=== PATIENT | female | born 1960 | race Caucasian/White ===

== ENCOUNTER 2023-02-10 14:48 | Outpatient (CLI) | payer BC, SELFPAY ==
--- NOTE | 2023-02-10 15:00 | CRLHL7_ITS ---
For Patients: As a result of the Century Cures Act, medical imaging exams and procedure reports are released immediately into your electronic medical record. You may view this report before your referring provider. If you have questions, please contact your health care provider. BILATERAL SCREENING MAMMOGRAM WITH COMPUTER-AIDED DETECTION TECHNIQUE: CC and MLO views were obtained. These mammographic images have been obtained using full-field digital technique. These mammographic images were interpreted with the benefit of computer-aided detection. COMPARISON FILM: 11/04/21, 10/01/20, 07/19/19. FINDINGS: There are scattered areas of fibroglandular density IMPRESSION: There is no radiographic evidence for malignancy. ASSESSMENT: BI-RADS Category 2: Benign RECOMMENDATION: Routine screening mammogram in 1 year. A lay language report of this examination will be provided to the patient. Goldy Torrez M.D. Diagnostic Radiologist [email or web address] Transcribed: 5:22 [email or web address] [email or web address]/Dictated by: Goldy Torrez MD @ 02/11/2023 9:42:00 AM (Electronically Signed)
== END 2023-02-10 14:49 | disposition home or self-care (01) ==
LOC: MAMMO 14:49
PROVIDERS: PCP Family Medicine; Visit Provider Family Medicine
DX: Z12.31 Encounter for screening mammogram for malignant neoplasm of breast (principal)
CPT/HCPCS: 77067

== ENCOUNTER 2023-03-18 09:15 | Outpatient (CLI) | payer BC, SELFPAY | END 2023-03-18 09:16 | disposition home or self-care (01) | LOC: NFLDREF 23:59 | PROVIDERS: PCP Family Medicine; Referring Provider Family Medicine; Visit Provider Family Medicine | DX: Z01.419 Encounter for gynecological examination (general) (routine) without abnormal findings (principal); M85.80 Other specified disorders of bone density and structure, unspecified site; E78.5 Hyperlipidemia, unspecified; Z13.1 Encounter for screening for diabetes mellitus | CPT/HCPCS: 80061; 82306; 82947 ==

== ENCOUNTER 2023-06-08 10:37 | Outpatient (CLI) | payer BC, SELFPAY ==
--- NOTE | 2023-06-08 11:10 | W.ANESCHARGE ---
Anesthesia Charges Start Date/Time Anesthesia Start Date: 06/08/23 Anesthesia Start Time: 11:48 Stop Date/Time Anesthesia Stop Date: 06/08/23 Anesthesia Stop Time: 12:25
--- NOTE | 2023-06-08 12:33 | W.ANESCHARGE ---
Anesthesia Charges Start Date/Time Anesthesia Start Date: 06/08/23 Anesthesia Start Time: 11:48 Stop Date/Time Anesthesia Stop Date: 06/08/23 Anesthesia Stop Time: 12:25
== END 2023-06-08 10:38 | disposition home or self-care (01) ==
LOC: OP CLINIC 10:38
PROVIDERS: PCP Family Medicine; Visit Provider Surgery
DX: Z12.11 Encounter for screening for malignant neoplasm of colon (principal); K63.5 Polyp of colon; K62.1 Rectal polyp
CPT/HCPCS: 00811; 45385; 88305; J2704; J3490

== ENCOUNTER 2024-06-13 09:10 | Outpatient (CLI) | payer OTHER, SELFPAY ==
--- OUTSIDE RECORDS SUMMARY | 2024-06-14 11:23 | XMS_ITS | Clinical Summary ---
Author Organization [facility] Address [place], [place] [address] Care Team Providers Care Inspector Ball Points Name Role Phone Vinh Kumari MD Primary Care Provider [phone] Allergies No known active allergies Medications Medication Sig Dispensed Refills Start Date End Date Status EXCEDRIN MIGRAINE 250 MG-250 MG-65 MG TAB as needed 01/07/2006 Active sennosides (SENNA LAX) 8.6 mg tablet Take 2 tablets by mouth 2 times daily. 0 06/09/2010 Active oxybutynin (DITROPAN) 5 mg tablet Take by mouth once daily. 01/26/2012 Active aspirin 81 mg tablet Take 1 tablet by mouth once daily with a meal. 0 02/22/2013 Active Calcium-Cholecalcif thomas, D3, (CALCIUM 600 WITH VITAMIN D3) 600 mg(1,500mg) -400 unit cap Take 1 capsule by mouth once daily. 0 02/22/2013 Active omega-3 fatty acids-vitamin E (FISH OIL) 1,000 mg cap Take 1 capsule by mouth once daily. 0 02/22/2013 Active magnesium 250 mg Tab Take 1 tablet by mouth once daily. 0 02/22/2013 Active medication order composer L-S Methyltetrahydrofol ate, Dietary Supplement 1 tablet daily 0 02/22/2013 Active rosuvastatin (CRESTOR) 20 mg tabletIndications:A rteriosclerotic heart disease Take 1 tablet by mouth at bedtime. Overdue for cardiology appointment, please call to schedule for further refills. 90 tablet 04/03/2019 Active Active Problems Problem Noted Date Diagnosed Date CAD (coronary artery disease) 02/24/2012 Smoking history 02/24/2012 Mixed hyperlipidemia 02/24/2012 GERD (gastroesophageal reflux disease) 2 Chest pain, unspecified Migraine, unspecified, witho ut mention of intractable migraine without mention of status migrainosus Family history of ischemic heart disease Family History Medical History Relation Name Comments Heart Disease Brother 1 of [place] at age 43 Heart Disease Brother 2 stent at age 4 3, high cholesterol Heart Disease Father 2 CABG surgeri es, HTN Heart Disease Mother 3 stents recen tly Heart Disease Paternal Grandfather a t age 52 of [place] Cancer Sister ovarian cncer Relation Name Status Comments Brother 1 Brother 2 Father Mother Paternal Grandfather Sister Social History Tobacco Use Types Packs/Day Years Used Date Smoking Tobacco: Former Cigarettes 1 33 1 - 05/28/2007 Alcohol Use Standard Drinks/Week Comments Yes 0 (1 standard drink = 0.6 oz pur e alcohol) social Sex and Gender Information Value Date Recorded Sex Assigned at Not on file Gender Identity Not on file Sexual Orientation Not on file Obstetrics History Last Filed Vital Signs Vital Sign Reading Time Taken Comments Blood Pressure 120/62 12/31/2017 3:05 PM CDT Pulse 63 12/31/2017 3:05 PM CDT Temperature - - Respiratory Rate 16 12/31/2017 3:05 PM CDT Oxygen Saturation 98% 02/22/2013 11:01 AM CDT Inhaled Oxygen Concentration - - Weight 59 kg (130 lb) 12/31/2017 3:05 PM CDT Height 162.6 cm (5' 4) 02/22/2013 11:01 AM CDT Body Mass Index 22.31 02/22/2013 11:01 AM CDT Plan of Treatment Upcoming Encounters Date Type Department Care Team (Late st Contact Info) Description 06/30/2024 8:00 AM TECHNICAL ACCOUNT REPRESENTATIVE Ancillary Procedure [facility] [address] [facility] [address] [place] [address] Health Maintenance Due Date Last Done Comments Tdap 1969 Depression screening for age 12+ 1970 HIV for age 15-65 1973 BMI (ht and wt on same day) for age 18+ 1976 Hepatitis C screening for ag e 18-79 1976 Tetanus booster 1978 Mammogram for age 45-75 10/16/2003 Zoster (shingles) series for age 50+ (1 of 2) 2008 Lipids for age 45-75 02/22/2018 02/22/2013 Colonoscopy through age 75 11/17/2022 11/17/2012 DEXA/DXA scan for age 65+ 10/16/2023 Pneumococcal series for age 65+ (1 of 1 - PCV) 10/16/2023 COVID-19 vaccine series (2023-25 season) 2024 Influenza for age 65+ 04/16/2024 Pap test for age 21-65 12/24/2024 2, 12/24/2021, 04/15/2016, Additional history exists Procedures Procedure Name Priority Date/Time Associated Diagnosis Comments PROCESS MOLD TECHNICIAN THIN PREP PAP SCREEN IMAGED Routine 12/24/2021 1:30 PM CDT LIPID PANEL Routine 02/22/2013 9:12 AM CDT CHEST PAIN MIGRAINE FAMILY HX OF ISCHEMIC HEART DISEASE CAD (coronary artery disease) Smoking history Mixed hyperlipidemia GERD (gastroesophageal reflux disease) from Last 3 Months or Most Recently Relevant to Health Maintenance Results * PROCESS MOLD TECHNICIAN THIN PREP PAP SCREEN IMAGED (12/24/2021 1:30 PM CDT) Case Report Gynecologic Cytology Report ? Case: [id number] ? Authorizing Provider: ??Darleen Link MD ??Collected: ? 12/24/2021 1330 ? Ordering Location: ? [facility] ?Received: ?12/26/2021 0854 ? First Screen: ?G[facility] ? Specimen: ?PROCESS MOLD TECHNICIAN ThinPrep Vial Screening, Cervical/Vaginal ? 01/08/2022 10:28 AM [facility] INTERPRETATION/ RESULT NEGATIVE FOR INTRAEPITHELIAL LESION OR MALIGNANCY (NIL) (none) 01/08/2022 10:28 AM [facility] IMEN ADEQUACY Satisfactory for evaluation Endocervical component present 01/08/2022 10:28 AM [facility] HPV REQUEST HPV if ASCUS 01/08/2022 10:28 AM [facility] Date of LMP 01/08/2022 10:28 AM [facility] Comment:N/A Last Pap Date 04/15/2016 01/08/2022 10:28 AM [facility] Last Pap Result 10:28 AM [facility] Comment:Normal Additional Information 01/08/2022 10:28 AM [facility] Comment: Interpreted at [facility], Central Laboratory - [address] [place] [address] Automated Review Successful 01/08/2022 10:28 AM [facility] Comment:Specimen processed s uccessfully by automated mass spectroscopist device, ThinPrep Imaging System, [employer] Note The pap test is a screening technique, not a diagnostic procedure. It is used primarily to screen for squamous cancers and precursor lesions. Published studies have shown that it is subject to both false negative and false positive results. The pap test should not be used as the sole means to diagnose or exclude pre-malignant and malignant lesions. 01/08/2022 10:28 AM CDT [facility] Other (Cervical/Vagina l) 12/24/2021 1:30 PM CDT 12/26/2021 8:54 AM CDT Darleen Link MD PATHOLOGY/CYTOLO GY [facility] [address] [place] [address], * (ABNORMAL) LIPID PANEL (02/22/2013 9:12 AM CDT) CHOLESTEROL,TOTA L 216(H) 100 - 199 mg/dL [facility] TRIGLYCERIDES 107 <150 mg/dL [facility] HDL CHOLESTEROL 77 >40 mg/dL [facility] CHOL/HDL RATIO 2.81 <4.50 [facility] NON-HDL CHOLESTEROL 139 Undefined mg/dL [facility] LDL CHOLESTEROL 118 <131 mg/dL [facility] PATIENT STATUS Fasting [facility] Blood specimen (specimen) BLOOD SPECIMEN / Unknown 02/22/2013 9:12 AM CDT 02/22/2013 9:14 AM CDT Dominic Chong MD CHEMISTRY [facility] INTERNAL ZIP [id number] [place] [address] from Last 3 Months or Most Recently Relevant to Health Maintenance Care Teams Inspector Ball Points Relationship Specialty Start Date End Date Vinh Kumari MD [address] [phone] PCP - General 12/11/05
== END 2024-06-13 09:11 | disposition home or self-care (01) ==
LOC: NFLDREF 06-14 11:21
PROVIDERS: PCP Family Medicine; Referring Provider Family Medicine; Visit Provider Family Medicine
DX: M85.89 Other specified disorders of bone density and structure, multiple sites (principal); E78.5 Hyperlipidemia, unspecified; R53.83 Other fatigue
CPT/HCPCS: 80053; 80061; 82306

== ENCOUNTER 2024-07-06 14:53 | Outpatient (CLI) | payer OTHER, SELFPAY ==
--- OUTSIDE RECORDS SUMMARY | 2024-07-06 14:55 | XMS_ITS | Clinical Summary ---
Author Organization [facility] Address [place], [place] [address] Care Team Providers Care Horse Race Timer Name Role Phone Vinh Kumari MD Primary Care Provider [phone] Allergies No known active allergies Medications Medication [...] once daily. 0 02/22/2013 Active medication order composslade L-S Methyltetrahydrofol ate, Dietary Supplement 1 tablet [...] migrainosus Family history of ischemic heart disease Encounters Date Type Department Care Team Description 06/30/2024 8:00 AM SWITCHBOARD MANAGER Ancillary Procedure [facility] [address] [facility] [place] [address] 06/30/2024 Travel from Last 3 Months Family History Medical History Relation Name Comments Heart Disease Brother 1 of [place] at age 43 Heart Disease Brother 2 stent at age 4 3, high cholesterol Heart Disease Father 2 CABG surgeri es, HTN Heart Disease Mother 3 stents recen tly Heart Disease Paternal Grandfather a t age 52 of [place] Cancer Sister ovarian cncer Relation Name Status [...] 02/22/2013 11:01 AM CDT Plan of Treatment Health Maintenance Due Date Last Done Comments [...] 1 - PCV) 10/16/2023 COVID-19 vaccine series (2023- season) 2024 Influenza for age 65+ 04/16/2024 Pap test for age 21-65 12/24/2024 2, 12/24/2021, 04/15/2016, Additional history exists Procedures Procedure Name Priority Date/Time Associated Diagnosis Comments CT CARDIAC CALCIUM SCORE ONLY WO SINGLE READ Routine 06/30/2024 8:11 AM SWITCHBOARD MANAGER Screening for cardiovascular condition LINUX SERVER ADMINISTRATOR THIN PREP PAP SCREEN IMAGED Routine 12/24/2021 1:30 PM CDT LIPID PANEL Routine 02/22/2013 9:12 AM CDT CHEST PAIN MIGRAINE FAMILY HX OF ISCHEMIC HEART DISEASE CAD (coronary artery disease) Smoking history Mixed hyperlipidemia GERD (gastroesophageal reflux disease) from Last 3 Months or Most Recently Relevant to Health Maintenance Results * CT CARDIAC CALCIUM SCORE ONLY WO SINGLE READ (06/30/2024 8:11 AM SWITCHBOARD MANAGER) Anatomical Region Laterality Modality Computed Tomogra phy Impressions 06/30/2024 1:42 PM SWITCHBOARD MANAGER 18-mm nodule in the left breast on image 3. Suggest diagnostic breast imaging evaluation. No additional acute or suspicious extracardiac imaging abnormalities. Please note that all CT scans at this facility use dose modulation, iterative reconstruction and/or weight-based dosing when appropriate to reduce radiation dose to as low as reasonably achievable. Connor Salmon M.D. Pediatric/Diagnostic Radiologist Cardiothoracic Imaging [email or web address] Narrative 06/30/2024 1:42 PM SWITCHBOARD MANAGER For Patients: As a result of the Cures Act, medical imaging exams and procedure reports are released immediately into your electronic medical record. You may view this report before your referring provider. If you have questions, please contact your health care provider. CT CARDIAC CALCIUM SCORING, 06/30/2024 PATIENT HISTORY: Screening for cardiovascular condition. REPORT: High-resolution, ECG-synchronized noncontrast computed tomography of the heart with attention to the coronary arteries was performed. Coronary calcification analyzed using Siemens calcium scoring software. These are the results of the evaluation. CT Calcium Scoring: This cardiac CT examination will provide you with a coronary artery calcium score. A coronary artery calcium score is a measurement of the amount of calcified plaque in the coronary arteries, the arteries that supply blood to the heart muscle. The coronary artery calcium score is calculated based on the number, size, and density of the calcified plaques in the coronary arteries. The amount of calcified coronary plaque has been shown to directly correlate with future risk for heart disease. The coronary artery calcium is a marker of how much plaque has accumulated in the cifuentes of the coronary arteries. It is not a test for blockages. This test is intended to assess cardiovascular risk in patients without symptoms. It is not intended to be a test for individuals with chest pain or other possible symptoms suggestive of heart disease. If you are having chest pain or other potential cardiovascular symptoms, see your physician. Calcium Score: Left main = 0 Left anterior descending = 200 Left circumflex = 5 Right coronary artery = 401 Total calcium score = 606 This places the patient at the 97th percentile for matched age and gender. Calcified Plaque Seen Assessment: Your cardiac CT examination demonstrates plaque in the coronary arteries. The amount of plaque in the coronary arteries directly correlates with the risk for heart attack and other coronary events (such as bypass or stenting). As discussed above, the coronary artery calcium score is intended for risk assessment in patients without cardiovascular symptoms. If you are having chest pain or other potential cardiovascular symptoms, see your physician. Recommendations: To lower your cardiovascular risk, we strongly recommend adherence to healthy lifestyle behaviors including: Following a heart healthy diet focused on modest portion sizes, a high intake of fresh fruits and vegetables, whole grains, healthy fats (olive oil, nuts and seeds, avocados), and healthy proteins (unprocessed meats, fish, legumes). Following an active lifestyle including 30-45 minutes of moderate intensity exercise 5-6 times per week. Avoidance of tobacco products. Cardiovascular preventive medication, including a daily aspirin and cholesterol-lowering statin medications have been shown to reduce the risk of a future heart attack and stroke, especially in individuals at higher risk for heart disease. We recommend that individuals with calcified plaque discuss the risks and benefits of cholesterol-lowering medications, blood pressure medications, and aspirin with their primary care physician. Cholesterol-lowering medications have been shown to reduce the risk of heart attack in individuals at elevated risk, including in patients with n ormal cholesterol levels at baseline. A coronary artery calcium score is not a test for blockages, it is a test for underlying plaque. An elevated calcium score is not an indication for additional testing for coronary heart disease though one may be considered based on your clinical history. The results of your coronary artery calcium score should be reviewed by your primary care provider or guidance and control system engineer. These recommendations are generalized and may not specifically apply to you as an individual. Your primary care physician is in the best position to provide advice on your care and clinical decisions should ultimately be made by you and your physician. Referral Self CT * LINUX SERVER ADMINISTRATOR THIN PREP PAP SCREEN IMAGED (12/24/2021 1:30 PM CDT) Case Report Gynecologic Cytology Report Case: [id number] Authorizing Provider: Darleen Link MD Collected: 12/24/2021 1330 Ordering Location: [facility] Received: 12/26/2021 0854 First Screen: Gilda House Specimen: LINUX SERVER ADMINISTRATOR ThinPrep Vial Screening, Cervical/Vaginal 01/08/2022 10:28 AM CDT [facility] INTERPRETATION/ RESULT NEGATIVE FOR INTRAEPITHELIAL LESION OR MALIGNANCY (NIL) (none) 01/08/2022 10:28 AM CDT [facility] IMEN ADEQUACY Satisfactory for evaluation Endocervical component present 01/08/2022 10:28 AM CDT [facility] HPV REQUEST HPV if ASCUS 01/08/2022 10:28 AM CDT [facility] Date of LMP 01/08/2022 10:28 AM CDT [facility] Comment:N/A Last Pap Date 04/15/2016 01/08/2022 10:28 AM CDT [facility] Last Pap Result 10:28 AM CDT [facility] Comment:Normal Additional Information 01/08/2022 10:28 AM CDT [facility] Comment: Interpreted at [facility] - [address], [place] [address] Automated Review Successful 01/08/2022 10:28 AM CDT [facility] Comment:Specimen processed s uccessfully by automated medical practitioners device, ThinPrep Imaging System, [employer] Note The pap test is a screening technique, not a diagnostic procedure. It is used primarily to screen for squamous cancers and precursor lesions. Published studies have shown that it is subject to both false negative and false positive results. The pap test should not be used as the sole means to diagnose or exclude pre-malignant and malignant lesions. 01/08/2022 10:28 AM T [facility] Other (Cervical/Vagina l) 12/24/2021 1:30 PM CDT 12/26/2021 8:54 AM CDT Darleen Link MD PATHOLOGY/CYTOLO GY [facility] [address] [place] [address], [place] * (ABNORMAL) LIPID PANEL (02/22/2013 9:12 AM CDT) CHOLESTEROL,TOTA L 216(H) 100 - 199 mg/dL [facility] TRIGLYCERIDES 107 <150 mg/dL [facility] HDL CHOLESTEROL 77 >40 mg/dL [facility] CHOL/HDL RATIO 2.81 <4.50 [facility] NON-HDL CHOLESTEROL 139 Undefined mg/dL [facility] LDL CHOLESTEROL 118 <131 mg/dL [facility] PATIENT STATUS Fasting [facility] Blood specimen (specimen) BLOOD SPECIMEN / Unknown 02/22/2013 9:12 AM CDT 02/22/2013 9:14 AM CDT Dominic Chong MD CHEMISTRY [facility] [place]NAL ZIP [address] [address] [place] [id number] from Last 3 Months or Most Recently Relevant to Health Maintenance Care Teams Horse Race Timer Relationship Specialty Start Date End Date Vinh Kumari MD [address] [phone] PCP - General 12/11/05
--- NOTE | 2024-07-06 15:00 | CRLHL7_ITS ---
For Patients: As a result of the Century Cures Act, medical imaging exams and procedure reports are released immediately into your electronic medical record. You may view this report before your referring provider. If you have questions, please contact your health care provider. DXA BONE MINERAL DENSITY STUDY Reason for exam: Osteopenia. Current height (in): 64. Weight (lbs): 130. Menopause age: 48. Ethnicity: White. 1. Have you had a previous hip or vertebral fracture? No. 2. Have you had any fractures during your adult life which did not result from significant trauma (e.g., auto accident)? Yes. 3. Did either of your parents have a hip fracture? No. 4. Do you smoke? No. 5. Have you ever taken Glucocorticoids? No. 6. Do you have rheumatoid arthritis? No. 7. Do you have secondary osteoporosis? No. 8. Do you drink 3 or more alcoholic drinks per day? No. 9. Are you being treated for osteoporosis? No. 10. Have you ever taken any of the following medications: Actonel, Evista, Fosamax, Miacalcin, Reclast, Boniva, Forteo, HRT (i.e., estrogen/hormone therapy), Protelos, Prolia, Vitamin D, Calcium, other ??? please specify. ANSWER: Yes, vitamin D and calcium. 11. Do you have any of the following medical conditions: Anorexia or bulimia, asthma or emphysema, end stage renal disease, hyperparathyroidism, any seizure disorders, cancer, inflammatory bowel diseases, hysterectomy, other ??? please specify. ANSWER: No. 12. What was your maximum height (inches)? 64. 13. Do you perform weight bearing exercise regularly? No. 14. Do you regularly consume dairy products? Yes. 15. Do you drink caffeinated beverages? Yes. 16. At what age did your period start? 12. 17. Are you premenopausal? No. 18. How many full-term pregnancies have you had? 4. 19. Have you ever missed your period for more than 6 months in a row (not including or menopause)? No. TECHNIQUE: Bone mineral density study was performed using the [employer]. FINDINGS: The results of the study expressed as bone mineral density (BMD) are as follows: Lumbar spine L1 to L4: BMD: 0.789 g/cm2. T-score: -2.3. Z-score: -0.5 Neck Left: BMD: 0.571 g/cm2. T-score: -2.5. Z-score: -1.0 Right: BMD: 0.628 g/cm2. T-score: -2.0. Z-score: -0.4 Total Left: BMD: 0.737 g/cm2. T-score: -1.7. Z-score: -0.4 Right: BMD: 0.722 g/cm2. T-score: -1.8. Z-score: -0.5 IMPRESSION: Osteoporosis. *Comparison exams done prior to 01/2020 were performed on different unit, [employer]. COMPARISON: Compared with scan of 01/08/2022, the bone mineral density has increased by 0.3 percent at the spine and decreased by 2.1 percent at the hip. Compared with scan of 07/25/2018, the bone mineral density has decreased by 6.5 percent at the spine and increased by 1.4 percent at the hip. Goldy Torrez M.D. Diagnostic Radiologist [email or web address]/Dictated by: Goldy Torrez MD @ 07/07/2024 8:45:00 AM (Electronically Signed)
== END 2024-07-06 14:54 | disposition home or self-care (01) ==
LOC: RAD 14:54
PROVIDERS: PCP Family Medicine; Visit Provider Family Medicine
DX: M85.89 Other specified disorders of bone density and structure, multiple sites (principal); M81.0 Age-related osteoporosis without current pathological fracture
CPT/HCPCS: 77080

== ENCOUNTER 2024-07-11 06:24 | Outpatient (CLI) | payer OTHER, SELFPAY ==
--- OUTSIDE RECORDS SUMMARY | 2024-07-11 06:26 | XMS_ITS | Clinical Summary ---
Author Organization [employer] [facility] Address [place], [place] [address] Care Team Providers Care Visual Educator Name Role Phone Vinh Kumari MD Primary Care Provider [phone] Allergies No known active allergies Medications Medication [...] Department Care Team Description 06/30/2024 8:00 AM CISCO UNIFIED COMMUNICATIONS ENGINEER Ancillary Procedure [facility] [address] [facility] [address] [place] [address] 06/30/2024 Travel from Last 3 Months Family History Medical History Relation Name Comments Heart Disease Brother 1 of [place] at age 43 Heart Disease Brother 2 stent at age 4 3, high cholesterol Heart Disease Father 2 CABG surgeri es, HTN Heart Disease Mother 3 stents recen tly Heart Disease Paternal Grandfather a t age 52 of [place] Cancer Sister ovarian cncer Relation Name Status [...] WO SINGLE READ Routine 06/30/2024 8:11 AM CISCO UNIFIED COMMUNICATIONS ENGINEER Screening for cardiovascular condition SIDEHAND THIN PREP PAP SCREEN IMAGED Routine 12/24/2021 1:30 PM CDT LIPID PANEL Routine 02/22/2013 9:12 AM CDT CHEST PAIN MIGRAINE FAMILY HX OF ISCHEMIC HEART DISEASE CAD (coronary artery disease) Smoking history Mixed hyperlipidemia GERD (gastroesophageal reflux disease) from Last 3 Months or Most Recently Relevant to Health Maintenance Results * CT CARDIAC CALCIUM SCORE ONLY WO SINGLE READ (06/30/2024 8:11 AM CISCO UNIFIED COMMUNICATIONS ENGINEER) Anatomical Region Laterality Modality Computed Tomogra phy Impressions 06/30/2024 1:42 PM CISCO UNIFIED COMMUNICATIONS ENGINEER 18-mm nodule in the left breast on [...] Ltd. [email or web address] SHH/rcd Narrative 06/30/2024 1:42 PM CISCO UNIFIED COMMUNICATIONS ENGINEER For Patients: As a result of the [...] reviewed by your primary care provider or news broadcaster. These recommendations are generalized and may not specifically apply to you as an individual. Your primary care physician is in the best position to provide advice on your care and clinical decisions should ultimately be made by you and your physician. Referral Self CT * SIDEHAND THIN PREP PAP SCREEN IMAGED (12/24/2021 1:30 PM CDT) Case Report Gynecologic Cytology Report Case: [id number] Authorizing Provider: Darleen Link MD Collected: 12/24/2021 1330 Ordering Location: [facility] Received: 12/26/2021 0854 First Screen: Gilda House Specimen: SIDEHAND ThinPrep Vial Screening, Cervical/Vaginal 01/08/2022 10:28 AM CDT [facility]-C ENTRAL LABORATORY INTERPRETATION/ RESULT NEGATIVE FOR INTRAEPITHELIAL LESION OR MALIGNANCY (NIL) (none) 01/08/2022 10:28 AM CDT [facility] LABORATORY IMEN ADEQUACY Satisfactory for evaluation Endocervical component present 01/08/2022 10:28 AM CDT [facility] HPV REQUEST HPV if ASCUS 01/08/2022 10:28 AM CDT [facility] Date of LMP 01/08/2022 10:28 AM CDT [facility] Comment:N/A Last Pap Date 04/15/2016 01/08/2022 10:28 AM CDT [facility] Last Pap Result 10:28 AM CDT [facility] Comment:Normal Additional Information 01/08/2022 10:28 AM CDT [facility] Comment: Interpreted at [facility] - [address], [place] [address] Automated Review Successful 01/08/2022 10:28 AM CDT [facility] Comment:Specimen processed s uccessfully by automated police officer booking device, ThinPrep Imaging System, [employer] Note The pap test is a [...] and malignant lesions. 01/08/2022 10:28 AM T [facility] Other (Cervical/Vagina l) 12/24/2021 1:30 PM CDT 12/26/2021 8:54 AM CDT Darleen Link MD PATHOLOGY/CYTOLO GY [facility] [address] [place] [address], [place] * (ABNORMAL) LIPID PANEL (02/22/2013 9:12 AM CDT) CHOLESTEROL,TOTA L 216(H) 100 - 199 mg/dL [facility] TRIGLYCERIDES 107 <150 mg/dL [facility] HDL CHOLESTEROL 77 >40 mg/dL [facility] CHOL/HDL RATIO 2.81 <4.50 [facility] NON-HDL CHOLESTEROL 139 Undefined mg/dL [facility] LDL CHOLESTEROL 118 <131 mg/dL [facility] PATIENT STATUS Fasting [facility] Blood specimen (specimen) BLOOD SPECIMEN / Unknown 02/22/2013 9:12 AM CDT 02/22/2013 9:14 AM CDT Dominic Chong MD CHEMISTRY [facility] [place] ZIP [address] [place] [id number] from Last 3 Months or Most Recently Relevant to Health Maintenance Care Teams Visual Educator Relationship Specialty Start Date End Date Vinh Kumari MD [address] [phone] PCP - General 12/11/05
--- NOTE | 2024-07-11 08:06 | W.ANESCHARGE ---
Anesthesia Charges Start Date/Time Anesthesia Start Date: 07/11/24 Anesthesia Start Time: 07:15 Stop Date/Time Anesthesia Stop Date: 07/11/24 Anesthesia Stop Time: 08:00
--- NOTE | 2024-07-11 08:09 | W.ANESCHARGE ---
Anesthesia Charges Start Date/Time Anesthesia Start Date: 07/11/24 Anesthesia Start Time: 07:15 Stop Date/Time Anesthesia Stop Date: 07/11/24 Anesthesia Stop Time: 08:00
== END 2024-07-11 06:25 | disposition home or self-care (01) ==
LOC: OP CLINIC 06:25
PROVIDERS: PCP Family Medicine; Visit Provider Surgery
DX: D12.2 Benign neoplasm of ascending colon (principal); D12.3 Benign neoplasm of transverse colon; D12.8 Benign neoplasm of rectum; Z86.0100 Personal history of colon polyps, unspecified
CPT/HCPCS: 00811; 45385; 88305; J2704

== ENCOUNTER 2024-07-16 11:23 | Outpatient (CLI) | payer OTHER, SELFPAY ==
--- OUTSIDE RECORDS SUMMARY | 2024-07-16 18:29 | XMS_ITS | Clinical Summary ---
Author Organization [employer] [facility] Address [place], [place] [address] Care Team Providers Care Maintenance Worker Municipal Name Role Phone Vinh Kumari MD Primary Care Provider [phone] Allergies No known active allergies Medications Medication [...] Department Care Team Description 06/30/2024 8:00 AM J2EE PROGRAMMER Ancillary Procedure [facility] [address] [facility] [address] [place] [address] 06/30/2024 Travel from Last 3 Months Family History Medical History Relation Name Comments Heart Disease Brother 1 of [place] at age 43 Heart Disease Brother 2 stent at age 4 3, high cholesterol Heart Disease Father 2 CABG surgeri es, HTN Heart Disease Mother 3 stents recen tly Heart Disease Paternal Grandfather a t age 52 of [place] Cancer Sister ovarian cncer Relation Name Status [...] WO SINGLE READ Routine 06/30/2024 8:11 AM J2EE PROGRAMMER Screening for cardiovascular condition MACHINE WORKER THIN PREP PAP SCREEN IMAGED Routine 12/24/2021 1:30 PM CDT LIPID PANEL Routine 02/22/2013 9:12 AM CDT CHEST PAIN MIGRAINE FAMILY HX OF ISCHEMIC HEART DISEASE CAD (coronary artery disease) Smoking history Mixed hyperlipidemia GERD (gastroesophageal reflux disease) from Last 3 Months or Most Recently Relevant to Health Maintenance Results * CT CARDIAC CALCIUM SCORE ONLY WO SINGLE READ (06/30/2024 8:11 AM J2EE PROGRAMMER) Anatomical Region Laterality Modality Computed Tomogra phy Impressions 06/30/2024 1:42 PM J2EE PROGRAMMER 18-mm nodule in the left breast on [...] Ltd. [email or web address] SHH/rcd Narrative 06/30/2024 1:42 PM J2EE PROGRAMMER For Patients: As a result of the [...] reviewed by your primary care provider or atmospheric scientist. These recommendations are generalized and may not specifically apply to you as an individual. Your primary care physician is in the best position to provide advice on your care and clinical decisions should ultimately be made by you and your physician. Referral Self CT * MACHINE WORKER THIN PREP PAP SCREEN IMAGED (12/24/2021 1:30 PM CDT) Case Report Gynecologic Cytology Report Case: [id number] Authorizing Provider: Darleen Link MD Collected: 12/24/2021 1330 Ordering Location: [facility] Received: 12/26/2021 0854 First Screen: Gilda House Specimen: MACHINE WORKER ThinPrep Vial Screening, Cervical/Vaginal 01/08/2022 10:28 AM CDT [facility] LABORAT[facility]-C ENTRAL LABORATORY INTERPRETATION/ RESULT NEGATIVE FOR INTRAEPITHELIAL LESION OR MALIGNANCY (NIL) (none) 01/08/2022 10:28 AM CDT [facility] ENTRAL LABORATORY IMEN ADEQUACY Satisfactory for evaluation Endocervical component present 01/08/2022 10:28 AM CDT [facility] HPV REQUEST HPV if ASCUS 01/08/2022 10:28 AM CDT [facility] Date of LMP 01/08/2022 10:28 AM CDT [facility] Comment:N/A Last Pap Date 04/15/2016 01/08/2022 10:28 AM CDT [facility] Last Pap Result 10:28 AM CDT [facility] Comment:Normal Additional Information 01/08/2022 10:28 AM CDT [facility] Comment: Interpreted at [facility] - [address], [place] [address] Automated Review Successful 01/08/2022 10:28 AM CDT [facility] Comment:Specimen processed s uccessfully by automated dumbwaiter operator device, ThinPrep Imaging System, [employer] Note The pap test is a [...] and malignant lesions. 01/08/2022 10:28 AM T [facility] Other (Cervical/Vagina l) 12/24/2021 1:30 PM CDT 12/26/2021 8:54 AM CDT Darleen Link MD PATHOLOGY/CYTOLO GY [facility] [address] [place] [address], [place] * (ABNORMAL) LIPID PANEL (02/22/2013 9:12 AM CDT) CHOLESTEROL,TOTA L 216(H) 100 - 199 mg/dL [facility] TRIGLYCERIDES 107 <150 mg/dL [facility] HDL CHOLESTEROL 77 >40 mg/dL [facility] CHOL/HDL RATIO 2.81 <4.50 [facility] NON-HDL CHOLESTEROL 139 Undefined mg/dL [facility] LDL CHOLESTEROL 118 <131 mg/dL [facility] PATIENT STATUS Fasting [facility] Blood specimen (specimen) BLOOD SPECIMEN / Unknown 02/22/2013 9:12 AM CDT 02/22/2013 9:14 AM CDT Dominic Chong MD CHEMISTRY [facility] [place] ZIP [address] [place] [id number] from Last 3 Months or Most Recently Relevant to Health Maintenance Care Teams Maintenance Worker Municipal Relationship Specialty Start Date End Date Vinh Kumari MD [address] [phone] PCP - General 12/11/05
== END 2024-07-16 11:24 | disposition home or self-care (01) ==
LOC: NFLDREF 18:28
PROVIDERS: PCP Family Medicine; Referring Provider Family Medicine
DX: N30.01 Acute cystitis with hematuria (principal); N39.0 Urinary tract infection, site not specified
CPT/HCPCS: 87086

== ENCOUNTER 2024-07-19 09:27 | Outpatient (CLI) | payer OTHER, SELFPAY ==
--- OUTSIDE RECORDS SUMMARY | 2024-07-19 09:30 | XMS_ITS | Clinical Summary ---
Author Organization [employer] [facility] Address [place], [place] [address] Care Team Providers Care Party Plan Sales Host/Hostess Name Role Phone Vinh Kumari MD Primary Care Provider [phone] Allergies No known active allergies Medications Medication [...] Department Care Team Description 06/30/2024 8:00 AM BUN MACHINE OPERATOR Ancillary Procedure [facility] [address] [facility] [address] [place] [address] 06/30/2024 Travel from Last 3 Months Family History Medical History Relation Name Comments Heart Disease [address] at age 43 Heart Disease Brother 2 stent at age 4 3, high cholesterol Heart Disease Father 2 CABG surgeri es, HTN Heart Disease Mother 3 stents recen tly Heart Disease Paternal Grandfather a t age [address] [place] Cancer Sister ovarian cncer Relation Name Status [...] WO SINGLE READ Routine 06/30/2024 8:11 AM BUN MACHINE OPERATOR Screening for cardiovascular condition METAL MODEL BUILDER THIN PREP PAP SCREEN IMAGED Routine 12/24/2021 1:30 PM CDT LIPID PANEL Routine 02/22/2013 9:12 AM CDT CHEST PAIN MIGRAINE FAMILY HX OF ISCHEMIC HEART DISEASE CAD (coronary artery disease) Smoking history Mixed hyperlipidemia GERD (gastroesophageal reflux disease) from Last 3 Months or Most Recently Relevant to Health Maintenance Results * CT CARDIAC CALCIUM SCORE ONLY WO SINGLE READ (06/30/2024 8:11 AM BUN MACHINE OPERATOR) Anatomical Region Laterality Modality Computed Tomogra phy Impressions 06/30/2024 1:42 PM BUN MACHINE OPERATOR 18-mm nodule in the left breast on [...] Ltd. [email or web address] SHH/rcd Narrative 06/30/2024 1:42 PM BUN MACHINE OPERATOR For Patients: As a result of the [...] reviewed by your primary care provider or remote sensing advisor. These recommendations are generalized and may not specifically apply to you as an individual. Your primary care physician is in the best position to provide advice on your care and clinical decisions should ultimately be made by you and your physician. Referral Self CT * METAL MODEL BUILDER THIN PREP PAP SCREEN IMAGED (12/24/2021 1:30 PM CDT) Case Report Gynecologic Cytology Report Case: [id number] Authorizing Provider: Darleen Link MD Collected: 12/24/2021 1330 Ordering Location: [facility] Received: 12/26/2021 0854 First Screen: Gilda House Specimen: METAL MODEL BUILDER ThinPrep Vial Screening, Cervical/Vaginal 01/08/2022 10:28 AM CDT [facility]-C ENTRAL LABORATORY INTERPRETATION/ RESULT NEGATIVE FOR INTRAEPITHELIAL LESION OR MALIGNANCY (NIL) (none) 01/08/2022 10:28 AM CDT [facility] ENTRAL LABORATORY IMEN ADEQUACY Satisfactory for evaluation Endocervical component present 01/08/2022 10:28 AM CDT [facility] HPV REQUEST HPV if ASCUS 01/08/2022 10:28 AM CDT [facility] Date of LMP 01/08/2022 10:28 AM CDT [facility] Comment:N/A Last Pap Date 04/15/2016 01/08/2022 10:28 AM CDT [facility] Last Pap Result 10:28 AM CDT [facility] Comment:Normal Additional Information 01/08/2022 10:28 AM CDT [facility] Comment: Interpreted at [facility] - [address], [place] [address] Automated Review Successful 01/08/2022 10:28 AM CDT [facility] Comment:Specimen processed s uccessfully by automated bisque cleaner device, ThinPrep Imaging System, [employer] Note The pap test is a [...] and malignant lesions. 01/08/2022 10:28 AM T [facility] Other (Cervical/Vagina l) 12/24/2021 1:30 PM CDT 12/26/2021 8:54 AM CDT Darleen Link MD PATHOLOGY/CYTOLO GY [facility] [address] [place] [address], [place] * (ABNORMAL) LIPID PANEL (02/22/2013 9:12 AM CDT) CHOLESTEROL,TOTA L 216(H) 100 - 199 mg/dL [facility] TRIGLYCERIDES 107 <150 mg/dL [facility] HDL CHOLESTEROL 77 >40 mg/dL [facility] CHOL/HDL RATIO 2.81 <4.50 [facility] NON-HDL CHOLESTEROL 139 Undefined mg/dL [facility] LDL CHOLESTEROL 118 <131 mg/dL [facility] PATIENT STATUS Fasting [facility] Blood specimen (specimen) BLOOD SPECIMEN / Unknown 02/22/2013 9:12 AM CDT 02/22/2013 9:14 AM CDT Dominic Chong MD CHEMISTRY [facility] [place] ZIP [address] [place] [id number] from Last 3 Months or Most Recently Relevant to Health Maintenance Care Teams Party Plan Sales Host/Hostess Relationship Specialty Start Date End Date Vinh Kumari MD [address] [phone] PCP - General 12/11/05
--- NOTE | 2024-07-19 09:45 | CRLHL7_ITS ---
For Patients: As a result of the Century Cures Act, medical imaging exams and procedure reports are released immediately into your electronic medical record. You may view this report before your referring provider. If you have questions, please contact your health care provider. DIAGNOSTIC BILATERAL MAMMOGRAM WITH COMPUTER-AIDED DETECTION AND TOMOSYNTHESIS, 07/19/2024 LEFT BREAST ULTRASOUND, 07/19/2024 CLINICAL HISTORY: LEFT breast nodule on outside CT chest. COMPARISON: 02/10/23, 11/04/21, 10/01/20 mammograms. TECHNIQUE: Digital BILATERAL mammogram in 4 projections with computer-aided detection. Tomosynthesis was used in this interpretation. Real-time ultrasound imaging of LEFT breast with imaging documentation. BREAST COMPOSITION: There are scattered areas of fibroglandular density. FINDINGS: 3D CC/MLO BILATERAL mammogram images submitted. Circumscribed nodular density is present in the retroareolar region of the LEFT breast. No architectural distortion. No suspicious calcifications. No adenopathy. Targeted LEFT breast ultrasound performed. At 12 o`clock, 2 cm from the nipple there is a circumscribed anechoic cyst measuring 2.8 x 1.0 x 1.9 cm. IMPRESSION: Simple cyst left breast 12 o`clock 2 cm from the nipple measuring 2.8 cm. No suspicious findings. RECOMMENDATIONS: Routine bilateral screening mammography. A lay language report of this examination will be provided to the patient. BI-RADS Category 2. Benign. Dictated by Goldy Torrez MD @ 07/19/2024 1:03:50 PM RADHA/patricia DW/Dictated by: Goldy Torrez MD @ 07/19/2024 1:03:00 PM (Electronically Signed)
--- NOTE | 2024-07-19 10:15 | CRLHL7_ITS ---
For Patients: As a result of the Century Cures Act, medical imaging exams and procedure reports are released immediately into your electronic medical record. You may view this report before your referring provider. If you have questions, please contact your health care provider. Please see BILATERAL diagnostic mammogram done same day for combined report Goldy Torrez M.D. Diagnostic Radiologist [employer] [email or web address] DSM/djw: DW/Dictated by: Goldy Torrez MD @ 07/19/2024 1:03:00 PM (Electronically Signed)
== END 2024-07-19 09:28 | disposition home or self-care (01) ==
LOC: MAMMO 09:28
PROVIDERS: PCP Family Medicine; Visit Provider Family Medicine
DX: N63.20 Unspecified lump in the left breast, unspecified quadrant (principal); N60.02 Solitary cyst of left breast; R93.89 Abnormal findings on diagnostic imaging of other specified body structures
CPT/HCPCS: 76642; 77066; G0279

== ENCOUNTER 2025-07-02 08:10 | Outpatient (CLI) | payer OTHER, SELFPAY | END 2025-07-02 08:11 | disposition home or self-care (01) | LOC: NFLDREF 07-05 06:50 | PROVIDERS: PCP Family Medicine; Referring Provider Family Medicine; Visit Provider Family Medicine | DX: E78.5 Hyperlipidemia, unspecified (principal); M85.80 Other specified disorders of bone density and structure, unspecified site; I25.10 Atherosclerotic heart disease of native coronary artery without angina pectoris | CPT/HCPCS: 80053; 80061; 82306; 82607 ==

== ENCOUNTER 2025-07-17 14:49 | Outpatient (CLI) | payer OTHER, SELFPAY ==
[2025-07-17 16:04] VITALS: BP 142/68; PULSE 88; RESP 16; O2SAT 98
--- NOTE | 2025-07-17 16:09 | W.PM.STED ---
Stress Test Note Date Date of test: 07/17/25 Providers Primary care provider: Darleen Link Stress test physician: Stefan Resendiz Stress Test Note Stress test ordered: Stress Echo Indication for test: Chest pain Results discussion: This very nice patient presents for the above test, after discussion the risks benefits and side effects of the test, patient would like to continue. Cardiac stress test medical history form is reviewed entirely. Pretest EKG shows normal sinus rhythm, with a ventricular rate of 63 and a blood pressure [address] wave changes are noted. Following Ankit protocol she is exercised for a total time of 10 minutes 25 seconds, achieved a metabolic equivalent of 12.1 Mets, her maximum heart rate was 154, which is 170% the maximum, her maximum blood pressure is 1 60-194. It was some slight ST wave depression noted, but nondiagnostic of ischemia. No dysrhythmias are noted, conditioning was felt to be excellent. Subjectively negative, with no complaints Impression: Negative electrographic, negative subjective electrographic portion of stress echo. Follow up suggested: Await echo imaging results, preliminary read by myself and the tech is negative. Cardiology will further review, and clinical correlation will be needed. Patient left this testing facility in good condition.
== END 2025-07-17 14:50 | disposition home or self-care (01) ==
LOC: STRESS 14:50
PROVIDERS: PCP Family Medicine; Visit Provider Family Medicine
DX: R07.89 Other chest pain (principal); I34.0 Nonrheumatic mitral (valve) insufficiency; I25.10 Atherosclerotic heart disease of native coronary artery without angina pectoris
CPT/HCPCS: 93016; 93325; 93351